=== PATIENT | female | born 1950 | race Caucasian/White ===

== ENCOUNTER 2018-03-21 12:39 | Outpatient (CLI) | payer MEDICARE | END 2018-03-21 12:40 | disposition home or self-care (01) | LOC: BICMAMMO 12:39 | PROVIDERS: ATTEND Obstetrics & Gynecology | DX: Z12.31 Encounter for screening mammogram for malignant neoplasm of breast (principal); R92.1 Mammographic calcification found on diagnostic imaging of breast; Z85.820 Personal history of malignant melanoma of skin | CPT/HCPCS: 77063; 77067 ==

== ENCOUNTER 2019-04-19 11:23 | Outpatient (CLI) | payer MEDICARE ==
--- NOTE | 2019-04-19 12:57 | MMO ---
Bilateral MAMMO Bilat Screen [facility]. CLINICAL HISTORY: Patient is 68 years old and is seen for screening. The patient has no family history of breast cancer. The patient has a history of melanoma. VIEWS: The views performed were: bilateral craniocaudal with tomosynthesis and bilateral mediolateral oblique with tomosynthesis. FILMS COMPARED: The present examination has been compared to prior imaging studies performed at [facility] on 03/07/2015, 03/11/2016, 03/16/2017 and 03/21/2018. This study has been interpreted with the assistance of computer-aided detection. MAMMOGRAM FINDINGS: There are scattered fibroglandular densities. There are stable benign appearing calcifications seen in both breasts. There are no suspicious masses, suspicious calcifications, or new areas of architectural distortion. IMPRESSION: THERE IS NO MAMMOGRAPHIC EVIDENCE OF MALIGNANCY. A ROUTINE FOLLOW-UP MAMMOGRAM IN 1 YEAR IS RECOMMENDED. THE RESULTS OF THIS EXAM WERE SENT TO THE PATIENT. ACR BI-RADS Category 2 - Benign finding MAMMOGRAPHY NOTE: 1. A negative mammogram report should not delay a biopsy if a dominant of clinically suspicious mass is present. 2. Approximately 10% to 15% of breast cancers are not detected by mammography. 3. Adenosis and dense breasts may obscure an underlying neoplasm. Reported by: CHRISTA JEAN MD Electonically Signed: [id number]
== END 2019-04-19 11:24 | disposition home or self-care (01) ==
LOC: BICMAMMO 11:23
PROVIDERS: ATTEND Obstetrics & Gynecology
DX: Z12.31 Encounter for screening mammogram for malignant neoplasm of breast (principal); Z85.820 Personal history of malignant melanoma of skin
CPT/HCPCS: 77063; 77067

== ENCOUNTER 2020-09-12 11:06 | Outpatient (CLI) | payer MEDICARE | END 2020-09-12 11:07 | disposition home or self-care (01) | LOC: RAD-FRANK 11:06 | PROVIDERS: ATTEND Nurse Practitioner Family | DX: S69.92XA Unspecified injury of left wrist, hand and finger(s), initial encounter (principal) ==

== ENCOUNTER 2020-12-22 14:18 | Emergency (ER) | payer MEDICARE ==
[2020-12-22 15:04] LABS: #Eosinphils 0.1 thou/uL (0.0-0.7); #Lymphocytes 1.5 thou/uL (1.20-3.40); #Monocytes 0.6 thou/uL (0.11-0.59); #Neutrophils 8.8 thou/uL (1.40-6.50); %Basophils 0.3 % (0.0-1.0); %Eosinophils 0.7 % (0.0-10.0); %Lymphocytes 13.3 % (21.0-51.0); %Monocytes 5.2 % (0.0-10.0); %Neutrophils 80.5 % (42.0-75.0); Hemoglobin 13.1 g/dL (12.0-16.0); Mean Corpuscular HGB CONC 33.6 g/dL (32.0-36.0); Mean Corpuscular Hemoglobin 32.9 pg (27.0-31.0); Mean Corpuscular Volume 97.9 fL (78.0-98.0); Mean Platelet Volume 6.8 fL (7.4-10.4); Platelet Count 216 thou/uL (130-400); RBC Distribution Width 11.8 % (11.5-14.5); Red Blood Cell (RBC) Count 3.97 mill/uL (4.20-5.40)
[2020-12-22] MEDS ORDERED: Morphine 4 MG/ML VIAL ONE ×2 (15:23→18:58)
[2020-12-22 15:26] LABS: ALT (SGPT) 47 U/L (8-55); AST (SGOT) 35 U/L (5-34); Albumin 3.9 g/dL (3.4-4.8); Alkaline Phosphatase 70 U/L (40-110); Anion Gap 12 mmol/L (10-20); BUN (Urea Nitrogen) 17 mg/dL (9.8-20.1); Bilirubin, Total 0.5 mg/dL (0.2-1.2); Calc. Creatinine Clearance 0 mL/min (70-130); Calcium 9.1 mg/dL (7.8-10.44); Carbon Dioxide 26 mmol/L (23-31); Chloride 104 mmol/L (98-107); Globulin 3.1 g/dL (2.4-3.5); Glucose 93 mg/dL (80-115); Potassium 4.2 mmol/L (3.5-5.1); Sodium 138 mmol/L (136-145)
[2020-12-22] MEDS ORDERED: Propofol 500 MG/50 ML VIAL ONE (17:04)
[2020-12-22] MEDS ORDERED: Ondansetron PF 4 MG/2 ML Vial ONE (17:48)
[2020-12-22] MEDS ORDERED: diphenhydrAMINE 50 MG/ML VIAL ONE (17:57)
[2020-12-22] MEDS ORDERED: Famotidine/PF 20 mg/2ml Vial ONE (17:57)
== END 2020-12-22 19:30 | disposition home or self-care (01) ==
LOC: ERS 14:18
DX: R55 Syncope and collapse (principal); S52.532A Colles' fracture of left radius, initial encounter for closed fracture; S52.612A Displaced fracture of left ulna styloid process, initial encounter for closed fracture; S09.90XA Unspecified injury of head, initial encounter; R11.2 Nausea with vomiting, unspecified; E78.5 Hyperlipidemia, unspecified; Z79.899 Other long term (current) drug therapy; W28.XXXA Contact with powered lawn mower, initial encounter
CPT/HCPCS: 25605; 36415; 70450; 80053; 84484; 85025; 93005; 96374; 96375; 96376; 99152; 99153; J1200; J2270; J2405; J2704; S0028

== ENCOUNTER 2020-12-25 10:47 | Outpatient (CLI) | payer MEDICARE ==
[2020-12-25 13:44] LABS: SARS-CoV-2 NAA Rapid Test Not Detected (NotDetected)
== END 2020-12-25 10:48 | disposition home or self-care (01) ==
LOC: LABBT 10:47
PROVIDERS: ATTEND Orthopaedic Surgery
DX: Z01.812 Encounter for preprocedural laboratory examination (principal); Z20.822 Contact with and (suspected) exposure to COVID-19
CPT/HCPCS: U0002

== ENCOUNTER 2020-12-26 10:39 | Day surgery (SDC) | payer MEDICARE ==
[2020-12-25 15:50] VITALS: BMI 27.4
[2020-12-26] MEDS ORDERED: Scopolamine 1.5 mg/72 hour Patch ONE (11:22)
[2020-12-26] MEDS ORDERED: Midazolam HCl 2 mg/2 ml Vial ONE ×2 (11:57→12:18)
[2020-12-26] MEDS ORDERED: Fentanyl 100 MCG/2 ML VIAL ONE ×2 (11:57→12:18)
[2020-12-26] MEDS ORDERED: Dexamethasone 4 mg/ml Vial ONE (12:18)
[2020-12-26] MEDS ORDERED: PROPOFOL 200 MG/20 ML VIAL ONE (12:38)
[2020-12-26] MEDS ORDERED: PHENYLEPHRINE-NS 100 MCG/ML 10 ML SYRINGE ONE (12:38)
[2020-12-26] MEDS ORDERED: Ondansetron PF 4 MG/2 ML Vial ONE (12:38)
[2020-12-26] MEDS ORDERED: ePHEDrine 50 MG/ML VIAL ONE (12:38)
[2020-12-26] MEDS ORDERED: Bupivacaine HCl 0.5%/Epinephrine 1:200,000/PF 30 ml Vial ONE (12:38)
[2020-12-26] MEDS ORDERED: Dexamethasone 20 MG/5 ML VIAL ONE (12:38)
[2020-12-26] MEDS ORDERED: Lidocaine 1% PF 5 ML VIAL ONE (12:38)
[2020-12-26] MEDS ORDERED: Promethazine HCl 25 MG/ML VIAL ONE (14:56)
== END 2020-12-26 15:40 | disposition home or self-care (01) ==
LOC: SDC 10:39
PROVIDERS: ATTEND Orthopaedic Surgery
PROC: 0PSJ04Z Reposition Left Radius with Internal Fixation Device, Open Approach (ICD-10-PCS; principal; 2020-12-26)
PROC: 3E0T3BZ Introduction of Anesthetic Agent into Peripheral Nerves and Plexi, Percutaneous Approach (ICD-10-PCS; 2020-12-26)
DX: S52.572A Other intraarticular fracture of lower end of left radius, initial encounter for closed fracture (principal); E78.00 Pure hypercholesterolemia, unspecified; Z79.899 Other long term (current) drug therapy; W19.XXXA Unspecified fall, initial encounter
CPT/HCPCS: 76000; C1713; J0690; J1100; J2250; J2405; J2550; J2704; J3010; J3490

== ENCOUNTER 2022-09-03 10:17 | Outpatient (CLI) | payer MEDICARE | END 2022-09-03 10:18 | disposition home or self-care (01) | LOC: BICMAMMO 10:17 | PROVIDERS: ATTEND Obstetrics & Gynecology | DX: Z13.820 Encounter for screening for osteoporosis (principal); M85.89 Other specified disorders of bone density and structure, multiple sites | CPT/HCPCS: 77080 ==

== ENCOUNTER 2022-12-03 06:43 | Day surgery (SDC) | payer MEDICARE ==
[2022-12-01 12:00] VITALS: BMI 27.8
[~2022-12-03 06:43] MED LIST: EPINEPHrine 0.3 MG in Ophthalmic Irrigation Solution 500 ML IRR SCH
[2022-12-03] MEDS ORDERED: Midazolam HCl 2 mg/2 ml Vial ONE ×2 (06:48→07:41)
[2022-12-03] MEDS ORDERED: fentaNYL 50 mcg/mL 1 mL Vial ONE (06:48)
[2022-12-03] MEDS ORDERED: PHENYLephrine 2.5% Ophth Soln 15 ml Bottle ONE (07:02)
[2022-12-03] MEDS ORDERED: Cyclopentolate 0.5% Opth Drops 15 ML BOT ONE (07:03)
[2022-12-03] MEDS ORDERED: Ondansetron PF 4 MG/2 ML Vial ONE ×2 (07:46→07:56)
[2022-12-03] MEDS ORDERED: Famotidine/PF 20 mg/2ml Vial ONE (07:46)
[2022-12-03] MEDS ORDERED: Lidocaine 1% PF 5 ML VIAL ONE (07:56)
[2022-12-03] MEDS ORDERED: Maxitrol 0.1% Opth Oint 3.5 GM TUBE ONE (07:56)
[2022-12-03] MEDS ORDERED: Bupivacaine 0.75% 10 ML VIAL ONE (07:56)
[2022-12-03] MEDS ORDERED: Indocyanine Green 25 MG/10 ML VIAL ONE (07:56)
[2022-12-03] MEDS ORDERED: Lidocaine 4% PF 5 ML AMP ONE (07:56)
[2022-12-03] MEDS ORDERED: CEFAZOLIN 1 GM VIAL ONE (07:56)
[2022-12-03] MEDS ORDERED: PROPOFOL 200 MG/20 ML VIAL ONE (07:56)
[2022-12-03] MEDS ORDERED: Triamcinolone 40 MG/ML VIAL ONE (07:56)
[2022-12-03] MEDS ORDERED: Promethazine HCl 25 MG/ML VIAL ONE (09:35)
== END 2022-12-03 10:30 | disposition home or self-care (01) ==
LOC: SDC 06:43
PROVIDERS: ATTEND Ophthalmology Retina Specialist
PROC: 08T53ZZ Resection of Left Vitreous, Percutaneous Approach (ICD-10-PCS; principal; 2022-12-03)
DX: H35.372 Puckering of macula, left eye (principal)
CPT/HCPCS: 67041; J3010; J0171; J0690; J2250; J2405; J2550; J2704; J3301; J3490; S0028